=== PATIENT | male | born 1965 | race Caucasian/White ===

== ENCOUNTER 2019-02-09 20:32 | Emergency (ER) | payer BC, SELFPAY ==
[2019-02-09 20:33] VITALS: BP 134/69; PULSE 106; RESP 17; TEMP 36.8; O2SAT 95; BMI 37.1
--- NOTE | 2019-02-09 21:25 | RAD_ITS ---
HISTORY: looking for foreign body in rectum EXAM: Abdominal series COMPARISON: None FINDINGS: XR Abdomen W/ Decub and/or Erect Views: BOWEL GAS PATTERN: Non-obstructive. No bowel or stomach distention. No rectal or other foreign body is visible. FREE AIR: None visualized. ORGANOMEGALY: Not seen. CALCIFICATIONS: No pathologic calcifications observed. LOWER CHEST: No acute pathology. BONES AND SOFT TISSUES: No acute pathology. RAD/Abd Decub and/or Erect(Portabl IMPRESSION: No rectal or other foreign body is visible. at 2241 Reported and signed by: Melchor Cho MD Electronically Signed: Melchor Cho, at 22:40 EDT Tel , Service support ,
--- NOTE | 2019-02-09 22:24 | ED.DCSUM_ITS ---
- ER Visit Summary Date of Service: 02/09/19 Chief Complaint: Rectal foreign body History of Present Illness: The patient is a 53 M who presents with a sex toy rectal foreign body for the last 3 hours. Patient states he last ate at 1030 this morning. He denies any abdominal pain currently. Physical Examination: Vital signs gross unremarkable. Patient's no acute distress. Heart is regular rate and rhythm. Lung sounds are clear. Abdomen is soft with no focal tenderness. Active bowel sounds are noted throughout. Rectal examination reveals rectal foreign body palpated the distal aspect of my finger. There is no bleeding. Test Results: Abdominal x-ray was obtained. No visible foreign body was noted. Emergency Department Course and Treatment: I attempted to grab the foreign body with Julius forceps through an anoscope without success. I spoke with Dr. Rodriguez. Both she and Dr. Valle presented to the patient's bedside. After multiple attempts they were able to remove the foreign body at bedside. Patient did have some bleeding noted. Repeat endoscopy by Dr. Rodriguez did not show any obvious tears. Patient was instructed to do sitz baths 2 or 3 times a day. Treatment Plan: [] Disposition: Discharge Impression: Rectal foreign body, removed This note was generated with [employer] dictation software. It may contain incorrect words, spelling, and punctuation that were not noted in review of the chart prior to signing ED Disposition - Plan for ED Patient: Disposition: Home or Assisted Living Instructions: ED Foreign Body Rectal Removed Adlt Referrals: Care Physician,No Primary [Primary Care Provider] -
--- NOTE | 2019-02-09 22:27 | PCM.CONS.GEN ---
Reason for Consult Date of Consultation: 02/09/19 History of Present Illness: The patient is a 53 year old M presented to the ER due to a foreign body in his rectum, which occurred about 6:30 PM tonight. Patient states that it is about an 8 inch long sex toy that has a broad base we did not think it should be able to get go all the way in and get stuck. Patient denies any abdominal pain, just fullness in the rectum. Patient is from out of town here only for 2 days. Past Medical History Medical History: Medical History (Last Updated 02/09/19 @ 22:37 by Sarah Rodriguez MD) Depression (Acute) F32.9 Anxiety F41.9 Foreign body anus/rectum T18.5XXA Allergies No Known Allergies Allergy (Verified 02/09/19 20:32) Home Medications: Ambulatory Orders Medication Instructions Recorded Duloxetine HCl 45 mg PO DAILY 02/09/19 Gabapentin [Neurontin] 300 mg PO DAILY 02/09/19 buPROPion tablets [Wellbutrin 100 mg PO DAILY 02/09/19 tablets] busPIRone [Buspar] 15 mg PO DAILY 02/09/19 traZODone [Desyrel] 50 mg PO QHS 02/09/19 Surgical History: no surgical history Psychiatric History: No pertinent psych hx Smoking Status: Never smoker - *Family History Maternal History Items: No pertinent history Review of Systems Constitutional: Denies: Anorexia Gastrointestinal: Denies: Abdominal Pain - Physical Exam General: Alert, Oriented x3, Cooperative, No apparent distress HEENT: Atraumatic Cardiovascular: Regular rate Abdomen: Soft, Non Tender, Non-Distended, - - CATHLEEN: + Silicone following body in the rectum Extremities: No clubbing, No cyanosis, No edema Neurological: Cranial nerves II-XII grossly intact Psych/Mental Status: Normal Affect Vital Signs Temp Pulse Resp BP Pulse Ox 98.3 F 106 H 17 134/69 H 95 02/09/19 20:33 02/09/19 20:33 02/09/19 20:33 02/09/19 20:33 02/09/19 20:33 Oxygen Delivery Method Room Air Weight: 259 lb Body Mass Index (BMI) 37.1 Assessment/Plan All Active Problems (Last Updated 02/09/19 @ 22:37 by Sarah Rodriguez MD) Depression (Acute) 53-year-old male with rectal foreign body. The rectal foreign body was able to be removed with sponge stick forceps, Dr. Edwards was also present and was able to remove the rectal foreign body. Recommend patient sitz baths 2-3x daily due to irritation of internal hemorrhoids during the removal and f/u with his PCP at home as pt is here from out of town. Sarah Rodriguez M.D. Pager: [phone] [facility] [address] [place] [address], [address] [place] [id number] Office: [phone] Code Visit Office Visits / Consults: [id number] OP Consult L1
--- NOTE | 2019-02-09 22:30 | CON.PCM_ITS ---
Reason for Consult Date of Consultation: 02/09/19 History of Present Illness: The patient is a 53 year old M presented to the ER due to a foreign body in his rectum, which occurred about 6:30 PM tonight. Patient states that it is about an 8 inch long sex toy that has a broad base we did not think it should be able to get go all the way in and get stuck. Patient denies any abdominal pain, just fullness in the rectum. Patient is from out of town here only for 2 days. Past Medical History Medical History: Medical History (Last Updated 02/09/19 @ 22:37 by Sarah Rodriguez MD) Depression (Acute) F32.9 Anxiety F41.9 Foreign body anus/rectum T18.5XXA Allergies No Known Allergies Allergy (Verified 02/09/19 20:32) Home Medications: Ambulatory Orders Medication Instructions Recorded Duloxetine HCl 45 mg PO DAILY 02/09/19 Gabapentin [Neurontin] 300 mg PO DAILY 02/09/19 buPROPion tablets [Wellbutrin 100 mg PO DAILY 02/09/19 tablets] busPIRone [Buspar] 15 mg PO DAILY 02/09/19 traZODone [Desyrel] 50 mg PO QHS 02/09/19 Surgical History: no surgical history Psychiatric History: No pertinent psych hx Smoking Status: Never smoker - *Family History Maternal History Items: No pertinent history Review of Systems Constitutional: Denies: Anorexia Gastrointestinal: Denies: Abdominal Pain - Physical Exam General: Alert, Oriented x3, Cooperative, No apparent distress HEENT: Atraumatic Cardiovascular: Regular rate Abdomen: Soft, Non Tender, Non-Distended, - - CATHLEEN: + Silicone following body in the rectum Extremities: No clubbing, No cyanosis, No edema Neurological: Cranial nerves II-XII grossly intact Psych/Mental Status: Normal Affect Vital Signs Temp Pulse Resp BP Pulse Ox 98.3 F 106 H 17 134/69 H 95 02/09/19 20:33 02/09/19 20:33 02/09/19 20:33 02/09/19 20:33 02/09/19 20:33 Oxygen Delivery Method Room Air Weight: 259 lb Body Mass Index (BMI) 37.1 Assessment/Plan All Active Problems (Last Updated 02/09/19 @ 22:37 by Sarah Rodriguez MD) Depression (Acute) 53-year-old male with rectal foreign body. The rectal foreign body was able to be removed with sponge stick forceps, Dr. Edwards was also present and was able to remove the rectal foreign body. Recommend patient sitz baths 2-3x daily due to irritation of internal hemorrhoids during the removal and f/u with his PCP at home as pt is here from out of town. Sarah Rodriguez M.D. Pager: [phone] [facility] [address] [place] [address], [address] [place] [id number] Office: [phone] Code Visit Office Visits / Consults: [id number] OP Consult L1
[2019-02-09 22:36] VITALS: BP 155/80; PULSE 92; RESP 18; O2SAT 98
== END 2019-02-09 22:37 | disposition home or self-care (01) ==
PROVIDERS: Emergency Provider Emergency Medicine
DX: T18.5XXA Foreign body in anus and rectum, initial encounter (principal); F32.9 Major depressive disorder, single episode, unspecified; F41.9 Anxiety disorder, unspecified; Z79.899 Other long term (current) drug therapy
CPT/HCPCS: 74019; 99282